=== PATIENT | male | born 1995 | race Caucasian/White ===

== ENCOUNTER 2019-08-16 15:13 | Emergency (ER) | payer MEDICARE, MEDICAID ==
--- NOTE | 2019-08-16 15:31 | ED ---
Psychiatric Complaint - HPI Summary HPI Summary: 24 year old male presents to the ED with a chief complaint of suicidal thoughts. Per EMS, patient has suicidal and homicidal thoughts, however patient himself denies these thoughts. He has been unable to sleep at all for 2 nights. Per patient, he has a history of self harm by cutting wrists. He has a history of recreational drug use and alcohol use but has not used in the last several days. He has recently been diagnosed with BPD and schizophrenia. Hx of anxiety and depression. Mom had BPD and schizophrenia. She earlier this year. - History Of Current Complaint Time Seen by Provider: 08/16/19 15:23 Hx Obtained From: Patient Onset/Duration: Lasting Days, Still Present Timing: Constant Severity Initially: Moderate Severity Currently: Moderate Character: Depressed Aggravating Factor(s): Nothing Alleviating Factor(s): Nothing Associated Signs And Symptoms: Positive: Sleep Disturbance - Hasn't slept for 2 nights Related History: Positive For: Prior Psychiatric Issues - depression, anxiety, schizophrenia, bipolar disorder Has Suicidal: Reports: Thoughts. Denies: With A Plan Has Homicidal: Reports: Thoughts. Denies: With A Plan - Allergies/Home Medications Home Medications: Home Medications Mirtazapine TAB* [Remeron TAB*] 15 mg PO DAILY 08/16/19 [History Confirmed 08/16] Sertraline* [Zoloft*] 100 mg PO BEDTIME 08/16/19 [History Confirmed 08/16/19] busPIRone TAB* [Buspar TAB *] 15 mg PO BID 08/16/19 [History Confirmed 08/16/19] hydrOXYzine HCL TAB* [Atarax 25 MG TAB*] 25 mg PO TID PRN 08/16/19 [History Confirmed 08/16/19] lamoTRIgine TAB(*) [LaMICtal TAB(*)] 50 mg PO BEDTIME 08/16/19 [History Confirmed 08/16/19] PMH/Surg Hx/FS Hx/Imm Hx Psychiatric History: Reports: Hx Anxiety, Hx Depression, Hx Schizophrenia, Hx Bipolar Disorder - Family History Known Family History: Positive: Other - Bipolar disorder, schizophrenia - Social History Alcohol Use: Weekly Hx Substance Use: Yes Review of Systems Negative: Fever Positive: Depressed All Other Systems Reviewed And Are Negative: Yes Physical Exam - Summary Physical Exam Summary: VITAL SIGNS: Reviewed. GENERAL: Patient is a well-developed and nourished male who is lying comfortable in the stretcher. Patient is not in any acute respiratory distress. HEAD AND FACE: No signs of trauma. No ecchymosis, hematomas or skull depressions. No sinus tenderness. EYES: PERRLA, EOMI x 2, No injected conjunctiva, no nystagmus. EARS: Hearing grossly intact. Ear canals and tympanic membranes are within normal limits. MOUTH: Oropharynx within normal limits. NECK: Supple, trachea is midline, no adenopathy, no JVD, no carotid bruit, no c- spine tenderness, neck with full ROM. CHEST: Symmetric, no tenderness at palpation. LUNGS: Clear to auscultation bilaterally. No wheezing or crackles. CVS: Regular rate and rhythm, S1 and S2 present, no murmurs or gallops appreciated. ABDOMEN: Soft, non-tender. No signs of distention. No rebound, no guarding, and no masses palpated. Bowel sounds are normal. EXTREMITIES: FROM in all major joints, no edema, no cyanosis or clubbing. NEURO: Alert and oriented x 3. No acute neurological deficits. Speech is normal and follows commands. SKIN: Dry and warm. PSYCH: Depressed, quiet, and denies any suicidal thoughts or plan. No homicidal thoughts or plan. No signs of psychosis or pressure speech. No tangential speech. Triage Information Reviewed: Yes Vital Signs Reviewed: Yes Procedures - Sedation Patient Received Moderate/Deep Sedation with Procedure: No Course/Dx - Course Assessment/Plan: 24 year old male presents to the ED with a chief complaint of suicidal thoughts. Per EMS, patient has suicidal and homicidal thoughts, however patient himself denies these thoughts. He has been unable to sleep at all for 2 nights. Per patient, he has a history of self harm by cutting wrists. He has a history of recreational drug use and alcohol use but has not used in the last several days. He has recently been diagnosed with BPD and schizophrenia. Hx of anxiety and depression. Mom had BPD and schizophrenia. She earlier this year. Blood work w/o a significant abnormality. He is medically cleared. He is awaiting a MHE. Patient is hemodynamically stable and A+O x 3. Dr. Eng ambulated the patient and recommends discharge home with follow-up with primary care physician. - Differential Dx/Clinical Impression Provider Diagnosis: Anxiety disorder, unspecified - Physician Notifications Discussed Care Of Patient With: Nona Eng - Psych Time Discussed With Above Provider: 18:20 Instructed by Provider To: Other - Dr. Eng performed a MHE. He recommends discharge home. Discharge ED - Sign-Out/Discharge Documenting (check all that apply): Patient Departure - discharge - Discharge Plan Condition: Stable Disposition: HOME Patient Education Materials: Anxiety (ED) Referrals: No Primary Care Phys,NOPCP [Primary Care Provider] - Additional Instructions: Per completion of a mental health evaluation, you are cleared for release and do not require inpatient psychiatric hospitalization at this time. Please go to nearest emergency room or call 911 if safety concerns arise or condition worsens. Important Phone Numbers: [facility] ph:[phone] [facility] ph:[phone] National Suicide Prevention Lifeline ph:[phone]- TALK (8232) [facility] ph:[phone] Alcoholics Anonymous ph: [facility] ph:[phone] [facility] ph:[phone] Recommendation: Return to [facility] where he will receive treatment for mental health and substance abuse. - Billing Disposition and Condition Condition: STABLE Disposition: Home - Attestation Statements Document Initiated by Scribe: Yes Documenting Scribe: Mil West Provider For Whom Scribe is Documenting (Include Credential): Akbar Salgado MD. Scribe Attestation: Mil Martin scribed for Akbar Salgado MD. on 08/17/19 at 1015. Scribe Documentation Reviewed: Yes Provider Attestation: The documentation as recorded by the Mil valdez accurately reflects the service I personally performed and the decisions made by Akbar rendon MD. Status of Scribe Document: Viewed
[2019-08-16 18:07] LABS: Urine Benzodiazepine Screen None Detected (None Detect); Urine Opiates Screen None Detected (None Detect)
[2019-08-16 18:58] VITALS: BP 138/71
== END 2019-08-16 18:40 | disposition home or self-care (01) ==
LOC: ED 15:13
DX: F41.9 Anxiety disorder, unspecified (principal); F20.9 Schizophrenia, unspecified; R45.851 Suicidal ideations; F32.9 Major depressive disorder, single episode, unspecified
CPT/HCPCS: 80307; 99285

== ENCOUNTER 2019-10-16 17:42 | Inpatient (IN) | payer MEDICARE, OTHER, MEDICAID ==
--- NOTE | 2019-10-16 17:55 | ED ---
Psychiatric Complaint - HPI Summary HPI Summary: This pt is a 24 y/o male presenting to [facility] via EMS from [facility] for SI and HI. Pt reports he has been experiencing twitching and a headache for the past 2 days and he believes it is a medications imbalance. Pt states he has SI thoughts and plan of killing himself with a knife. He also admits to HI thoughts. Denies any prior suicide attempts. Patient reports he can't cope with "it" anymore and is at the point where he needs high level or care. When asked what is "it" he states it is his anxiety and twitching. Patient's medications include antipsychotics, Zoloft, Lamictal. - History Of Current Complaint Time Seen by Provider: 10/16/19 17:43 Hx Obtained From: Patient, EMS Onset/Duration: Lasting Days - 2, Still Present Timing: Days Severity Currently: Mild Alleviating Factor(s): Nothing Associated Signs And Symptoms: Positive: Negative Related History: Positive For: Prior Psychiatric Issues Has Suicidal: Reports: Thoughts, With A Plan Has Homicidal: Reports: Thoughts. Denies: With A Plan - Allergies/Home Medications Allergies/Adverse Reactions: Allergies Allergy/AdvReac Type Severity Reaction Status Date / Time No Known Allergies Allergy Verified 10/17/19 17:40 Home Medications: Home Medications Folic Acid TAB* [Folvite TAB*] 1 mg PO DAILY 10/17/19 [History Confirmed ] Gabapentin CAP(*) [Neurontin 400 mg CAP(*)] 400 mg PO TID 10/17/19 [History Confirmed 10/17/19] Haloperidol CONC. PEGGY (NF) [Haloperidol CONC. SOLUTION (NF)] 1 mg PO BEDTIME 07/26 [History Confirmed 10/17/19] Mirtazapine TAB* [Remeron TAB*] 15 mg PO BEDTIME 10/17/19 [History Confirmed 07/26] Multivitamins/Minerals TAB* [Theragran/minerals TAB*] 1 tab PO DAILY 10/17/19 [ History Confirmed 10/17/19] Naloxone Nasal [place]* [Narcan Nasal [place]] 4 mg NASAL DAILY PRN 10/17/19 [ History Confirmed 10/17/19] Sertraline* [Zoloft*] 100 mg PO DAILY 10/17/19 [History Confirmed 10/17/19] Thiamine TAB* [Vitamin B-1 TAB*] 100 mg PO DAILY 10/17/19 [History Confirmed 07/26] cloNIDine TAB* [Catapres 0.1 MG TAB*] 0.1 mg PO BID 10/17/19 [History Confirmed 10/17/19] PMH/Surg Hx/FS Hx/Imm Hx Respiratory History: Denies: Hx Asthma Psychiatric History: Reports: Hx Anxiety, Hx Depression, Hx Schizophrenia, Hx Bipolar Disorder Denies: Hx Eating Disorder, Hx Post Traumatic Stress Disorder, Hx Suicide Attempt Infectious Disease History: No Infectious Disease History: Denies: Traveled Outside the [place] in Last 30 Days - Family History Known Family History: Positive: Other - Bipolar disorder, schizophrenia - Social History Alcohol Use: Weekly Alcohol Amount: 8-9 beers Hx Substance Use: Yes Substance Use Type: Reports: Cocaine, Marijuana, Other Substance Use Comment - Amount & Last Used: LSD Smoking Status (MU): Heavy Every Day Tobacco Smoker Review of Systems Negative: Fever Cardiovascular: Negative Respiratory: Negative Gastrointestinal: Negative Neurological/Mental Status: Other - POSITIVE: twitching Positive: Headache Psychological: Other - POSITIVE: SI and HI All Other Systems Reviewed And Are Negative: Yes Physical Exam - Summary Physical Exam Summary: VITAL SIGNS: Reviewed. GENERAL: Patient is a well-developed and nourished male. Patient is not in any acute respiratory distress. HEAD AND FACE: No signs of trauma. No ecchymosis, hematomas or skull depressions. No sinus tenderness. EYES: PERRLA, EOMI x 2, No injected conjunctiva, no nystagmus. EARS: Hearing grossly intact. Ear canals and tympanic membranes are within normal limits. MOUTH: Oropharynx within normal limits. NECK: Supple, trachea is midline, no adenopathy, no JVD, no carotid bruit, no c- spine tenderness, neck with full ROM. CHEST: Symmetric, no tenderness at palpation LUNGS: Clear to auscultation bilaterally. No wheezing or crackles. CVS: Regular rate and rhythm, S1 and S2 present, no murmurs or gallops appreciated. ABDOMEN: Soft, non-tender. No signs of distention. No rebound, no guarding, and no masses palpated. Bowel sounds are normal. EXTREMITIES: FROM in all major joints, no edema, no cyanosis or clubbing. NEURO: Alert and oriented x 3. No acute neurological deficits. Speech is normal and follows commands. SKIN: Dry and warm Triage Information Reviewed: Yes Vital Signs On Initial Exam: Initial Vitals Temp Pulse Resp BP Pulse Ox 97.7 F 61 14 109/67 97 10/16/19 17:45 10/16/19 17:45 10/16/19 17:45 10/16/19 17:45 10/16/19 17:45 Vital Signs Reviewed: Yes Procedures - Sedation Patient Received Moderate/Deep Sedation with Procedure: No Diagnostics - Vital Signs Vital Signs Temp Pulse Resp BP Pulse Ox 10/16/19 17:45 97.7 F 61 14 109/67 97 - Laboratory Result Diagrams: 10/16/19 17:59 10/16/19 17:59 Lab Statement: Any lab studies that have been ordered have been reviewed, and results considered in the medical decision making process. Re-Evaluation - Re-Evaluation First Eval Re-Evaluation Time: 18:27 Comment: Pt is medically cleared. Course/Dx - Course Assessment/Plan: This pt is a 24 y/o male presenting to [facility] via EMS from [facility] for SI and HI. Pt reports he has been experiencing twitching and a headache for the past 2 days and he believes it is a medications imbalance. Pt states he has SI thoughts and plan of killing himself with a knife. He also admits to HI thoughts. Denies any prior suicide attempts. Patient reports he can't cope with "it" anymore and is at the point where he needs high level or care. When asked what is "it" he states it is his anxiety and twitching. Patient's medications include antipsychotics, Zoloft, Lamictal. Blood work w/o a significant abnormality. He is medically cleared. He is awaiting a MHE. Patient is hemodynamically stable and A+O x 3. The patient is a sign-out from Dr. Akbar Salgado MD, to Dr. Stella Meneses MD, at change of shift at 2200 on 10/16/19, pending mental health evaluation and disposition. - Differential Dx/Clinical Impression Differential Diagnosis/HQI/PQRI: Positive: Depression, Suicidal Ideation Provider Diagnosis: Depression Discharge ED - Sign-Out/Discharge Documenting (check all that apply): Sign-Out Patient Signing out patient TO: Stella Meneses - Patient is a sign-out to Dr. Stella Meneses MD, at change of shift at 2200 on 10/16/19, pending MHE and disposition. - Discharge Plan Condition: Stable [place] [place]illing Disposition and Condition Condition: STABLE - Attestation Statements Document Initiated by Sahil: Yes Documenting Scribe: Taya Billy Provider For Whom Sahil is Documenting (Include Credential): Akbar Salgado MD Scribe Attestation: Ginger Martin Natalie George, scribed for Akbar Salgado MD on 10/18/19 at 0246. Scribe Documentation Reviewed: Yes Provider Attestation: The documentation as recorded by the martinibrichard, Taya Billy accurately reflects the service I personally performed and the decisions made by Akbar rendon MD Status of Scribe Document: Viewed
[2019-10-16 18:08] LABS: ABS Basophils 0.1 10^3/ul (0-0.2); ABS Eosinophils 0.1 10^3/ul (0-0.6); ABS Lymphocytes 2.4 10^3/ul (1.0-4.8); ABS Monocytes 0.5 10^3/ul (0-0.8); ABS Neutrophils 3.8 10^3/ul (1.5-7.7); Eosinophil % 1.8 %; Hematocrit 47 % (42-52); Hemoglobin 16.6 g/dL (14.0-18.0); Lymphocyte % 35.1 %; Mean Corpuscular HGB Conc 36 g/dL (31-36); Mean Corpuscular Hemoglobin 32 pg (27-31); Mean Corpuscular Volume 90 fL (80-94); Mean Platelet Volume 8.5 fL (7.4-10.4); Nucleated Red Blood Cells % 0.1; Platelet Count 208 10^3/uL (150-450); Red Blood Count 5.16 10^6 /uL (4.18-5.48); Red Cell Distribution Width 13 % (10-15); White Blood Count 6.8 10^3/uL (3.5-10.8)
[2019-10-16 18:36] LABS: Urine Appearance Cloudy; Urine Bilirubin Negative (Negative); Urine Blood Negative (Negative); Urine Color Yellow; Urine Glucose Negative (Negative); Urine Ketones Negative (Negative); Urine Nitrite Negative (Negative); Urine Protein 1+(30 mg/dL) (Negative); Urine Specific Gravity 1.026 (1.010-1.030); Urine Urobilinogen Negative (Negative)
[2019-10-16 18:39] LABS: Urine Bacteria Absent (Absent); Urine Red Blood Cell Absent (Absent); Urine White Blood Cell Absent (Absent)
[2019-10-16 18:48] LABS: ALT 20 U/L (7-52); AST 15 U/L (13-39); Albumin 4.7 g/dL (3.2-5.2); Albumin/Globulin Ratio 2.4 (1-3); Alkaline Phosphatase 69 U/L (34-104); Anion Gap 7 mmol/L (2-11); BUN/Creatinine Ratio 13.2 (8-20); Blood Urea Nitrogen 16 mg/dL (6-24); CO2 Carbon Dioxide 27 mmol/L (22-32); Calcium 9.5 mg/dL (8.6-10.3); Chloride 105 mmol/L (101-111); EGFR African American 89.1 (>60); EGFR Non-African American 73.7 (>60); Glucose 91 mg/dL (70-100); Potassium 4.3 mmol/L (3.5-5.0); Sodium 139 mmol/L (135-145); Total Protein 6.7 g/dL (6.4-8.9)
[2019-10-16 18:52] LABS: TSH (Thyroid Stimulating Horm) 2.27 mcIU/mL (0.34-5.60)
[2019-10-16 18:56] LABS: Alcohol < 10 mg/dL (<10); Salicylate < 2.50 mg/dL (<30)
[2019-10-16 19:18] LABS: Urine Benzodiazepine Screen None Detected (None Detect); Urine Opiates Screen None Detected (None Detect)
[2019-10-16 20:34] LABS: Acetaminophen < 15 mcg/mL
[2019-10-16] MEDS ORDERED: Haloperidol TAB* 2 MG PO ONE (22:18)
[2019-10-16] MEDS ORDERED: Benztropine TAB* 1 MG PO ONE (22:18)
[2019-10-16] MEDS ORDERED: hydrOXYzine HCL TAB* 25 MG PO ONE (22:19)
[2019-10-16] MEDS ORDERED: cloNIDine TAB* 0.1 MG PO ONE (22:19)
[2019-10-16] MEDS ORDERED: Mirtazapine TAB* 15 MG PO ONE (22:20)
--- NOTE | 2019-10-16 22:34 | ED ---
Progress - Progress Note Progress Note: Patient is received as a sign-out from Dr. Salgado at 2200 10/16/19 shift end pending MHE and disposition of this patient. 2215 - main line assembler requested night time medications for the patient. He was given Cogentin, Remeron, Atarax, Catapres,and Haldol. Patient is signed out to Dr. Kaplan at 0700 10/17/19 shift change pending MHE of this patient. Re-Evaluation - Re-Evaluation First Eval Re-Evaluation Time: 18:27 Comment: Pt is medically cleared. Course/Dx - Diagnoses Provider Diagnoses: Depression Discharge ED - Sign-Out/Discharge Documenting (check all that apply): Sign-Out Patient, Receiving Sign-Out Signing out patient TO: Xavi Kaplan Receiving patient FROM: Akbar Salgado - Discharge Plan Condition: Stable Referrals: No Primary Care Phys,NOPCP [Primary Care Provider] - - Billing Disposition and Condition Condition: STABLE - Attestation Statements Document Initiated by Scribe: Yes Documenting Scribe: JORDY OROZCO Provider For Whom Scribe is Documenting (Include Credential): JUSTIN MUÑOZ MD Scribe Attestation: IJORDY, scribed for JUSTIN MUÑOZ MD on 10/17/19 at 0704. Scribe Documentation Reviewed: Yes Provider Attestation: The documentation as recorded by the JORDY valdez accurately reflects the service I personally performed and the decisions made by me, JUSTIN MUÑOZ MD Status of Scribe Document: Viewed
--- NOTE | 2019-10-17 07:13 | ED ---
Progress - Progress Note Progress Note: Patient is a sign-out at 07:00 on 10/17/[address] Stella Meneses MD to Dr. Xavi Kaplan MD at shift change, pending mental health evaluation and disposition. At 12:55, costumer assistant reports that Dr. Adan Bird reviewed the patients case and patient will be [place] [facility] [place] a diagnosis of [place]. Patient will be admitted [place] [facility] with a diagnosis of [place]. Re-Evaluation - Re-Evaluation First Eval Re-Evaluation Time: 18:27 Comment: Pt is medically cleared. Course/Dx - Course Course Of Treatment: Patient was signed out to myself from Dr. Meneses pending mental health evaluation. Patient was evaluated by the mental health team and admitted to the hospital - Diagnoses Provider Diagnoses: Depression - Provider Notifications Discussed Care Of Patient With: Adan Bird - At 12:55, costumer assistant reports that Dr. Adan Bird reviewed the patients case and patient will be admitted to [facility] with a diagnosis of depression. Time Discussed With Above Provider: 12:55 Instructed by Provider To: Admit As Inpatient Discharge ED - Sign-Out/Discharge Documenting (check all that apply): Patient Departure - Admit, Receiving Sign- Out Receiving patient FROM: Stella Meneses - Patient is a sign-out at 07:[address] Stella Meneses MD to Dr. Xavi Kaplan MD at shift change, pending mental health evaluation and disposition. - Discharge Plan Condition: Stable Disposition[place] [place] [Outside] - Billing Disposition and Condition Condition: STABLE Disposition: [place] [facility] - Attestation Statements Document Initiated by Scribe: Yes Documenting Scribe: Randi Bustos Provider For Whom Sahil is Documenting (Include Credential): Xavi Kaplan MD Scribe Attestation: Randi Martin scribed for Xavi Kaplan MD on 10/17/19 at 1701. Scribe Documentation Reviewed: Yes Provider Attestation: The documentation as recorded by the Randi valdez accurately reflects the service I personally performed and the decisions made by me, Xavi Kaplan MD Status of Scribe Document: Viewed
[2019-10-17] MEDS ORDERED: Acetaminophen TAB* 325 MG PO PRN (16:32)
[2019-10-17] MEDS ORDERED: Al Hydrox/Mg Hydrox/Simet LIQ* 30 ML UDC PO PRN (16:32)
[2019-10-17] MEDS: busPIRone TAB* 15 MG PO SCH (20:07)
[2019-10-17] MEDS: hydrOXYzine HCL TAB* 25 MG PO PRN (20:09)
[2019-10-17] MEDS ORDERED: Mirtazapine TAB* 15 MG PO SCH (21:00)
[2019-10-17] MEDS ORDERED: lamoTRIgine TAB(*) 25 MG PO SCH (21:00)
[2019-10-18] MEDS: busPIRone TAB* 15 MG PO SCH (08:57)
[2019-10-18] MEDS ORDERED: Influenza VAC *QUAD* 2019-20* 0.5 ML SYRINGE IM ONE (09:00)
[2019-10-18] MEDS: hydrOXYzine HCL TAB* 25 MG PO PRN ×2 (12:41→20:29)
[2019-10-18] MEDS ORDERED: busPIRone TAB* 15 MG PO SCH (14:00)
[2019-10-18] MEDS: busPIRone TAB* 10 MG PO SCH ×2 (14:13→20:11)
--- NOTE | 2019-10-18 16:21 | HP ---
HISTORY AND PHYSICAL: DATE OF ADMISSION: 10/17/19 PROVIDER: Margarette Amador NP, in Psychiatry. SUPERVISING PHYSICIAN: Adan Bird MD * (DICTATED BY MARGARETTE AMADOR NP) JUSTIFICATION FOR ADMISSION: The patient is in need of 24-hour supervision and care secondary to suicidal ideation. CHIEF COMPLAINT: "Zoloft made my anxiety and depression worse and made me twitch." HISTORY OF PRESENT ILLNESS: The patient is a 24-year-old single white male with a history of bipolar disorder and serious substance use, who arrives, brought in by EMS from [facility] and is here on a voluntary status after determining that he feels suicidal in the context of twitching and being highly anxious. Isael is met in the hallway. He is twitching probably 3 times per minute, having facial and body twitches alike. He has been at [facility] for 3 months. Upon arrival to [facility], he had not slept for 4 days and was exhibiting what he terms manic symptoms, although he is unable to name what those symptoms are other than lack of sleep. He says that at that point he was diagnosed with bipolar disorder and started on Lamictal and Zoloft among other medications. Isael believes that Zoloft is responsible for the twitching, the high anxiety, and the increased depression, but he started Zoloft two months ago and didn't have these symptoms. When discussed, we believe that his increased anxiety, depression, and twitching may be the result of something else including more rapid cycling as well as the use of gabapentin. He is agreeable to changing medications, but also mentions that he believes a benzodiazepine would be helpful to him. When this option was declined to be ordered, he was gracious in accepting that declination but did bring it up again and asked with great hope that he be allowed to have a benzodiazepine if the twitching did not stop. He states that he has had bad anxiety that is so overwhelming that he feels suicidal. He had a plan to cut himself with a knife. He also discusses being very angry, feeling like he is going crazy, having racing thoughts that last from minutes to days. He says that these times he feels like he could beat someone up or possibly kill them. He is experiencing stressors of being at [facility]. He states that it is not bad and he is pretty happy there, but at the same time he is also experiencing symptoms that cause him to want to kill himself. The bipolar diagnosis does seem to make sense given the history that he has offered as well as the fact that his mom had bipolar disorder. He currently appears to be very uncomfortable with his twitching as well as simply uncomfortable and anxious in general. PAST PSYCHIATRIC HISTORY: He has no previous psychiatric admissions. He has been admitted to [facility] once before and is now at [facility] by mandate of the drug court. He is currently being seen at [facility] by a doctor named Yoselin, who he is concerned does not know enough about his treatment. He has experienced suicidal ideation in the past. He has not been violent. He does not currently have access to weapons because he is at an inpatient rehab facility. Previous psychiatric meds have included Zoloft and Haldol. He also has been taking mirtazapine, clonidine, and BuSpar. SUBSTANCE ABUSE HISTORY: He is in treatment for alcohol, cocaine, marijuana, and LSD use. He started using marijuana at age 16, alcohol and LSD at 18, and cocaine at age 21. PAST MEDICAL HISTORY: He stated there was nothing significant. FAMILY HISTORY: On mom's side, there is bipolar disorder as well as heroin addiction. Mom last March from an overdose of heroin that was laced with fentanyl. On dad's side, there is depression and he has a brother with autism. SOCIAL HISTORY: He went to high school in [place], [place]. He graduated, but did not continue on with schooling. He does not have children. He is not currently or partnered. His employment has been a string of jobs that he has not gotten very far at. 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 He has worked at [employer]. He has worked at [employer]. He has no history. He is not probation , but he is in drug court. REVIEW OF SYSTEMS: The patient reports feeling alert. He denies shortness of breath, heat or cold intolerance, chest pain or abdominal pain. He denies neurological symptoms with the exception of facial and body twitches, which appear to get worse when he is aware that we are talking about them and get less symptomatic when he is relaxed. He denies fevers or changes in weight. PHYSICAL EXAMINATION GENERAL: The patient is a well-developed and nourished male. He is not in any acute respiratory distress. VITAL SIGNS: On 10/18/19 at 0800, temperature is 97.8, pulse 54, respirations 18, O2 sat on room air 100%, blood pressure 154/75. It should be noted that his blood pressure was significantly lower on the day before. HEENT: Head and face: No signs of trauma. No ecchymosis, hematomas, or skull depressions. No sinus tenderness. Eyes: PERRLA. EOMI x2. No injected conjunctivae. No nystagmus. Ears: Hearing grossly intact. Ear canals and tympanic membranes are within normal limits. Mouth: Oropharynx within normal limits. NECK: Supple. Trachea is midline. No adenopathy. No JVD. No carotid bruits. No C-spine tenderness. Neck with full range of motion. LUNGS: Clear to auscultation bilaterally. No wheezing or crackles. CHEST: Symmetric. No tenderness to palpation. CVS: Regular rate and rhythm. S1 and S2 present. No murmurs or gallops appreciated. ABDOMEN: Soft, nontender. No signs of distention. No rebound. No guarding and no masses palpated. Bowel sounds are normal. EXTREMITIES: Full range of motion in all major joints. No edema. No cyanosis or clubbing. NEURO: Alert and oriented x4. Speech is normal and he follows commands. No acute neurological deficits. It should be noted that he does have tics. SKIN: Dry and warm. LABORATORY DATA: Most laboratory data are within normal limits. Exceptions include MCH high at 32, creatinine high at 1.21. Urine contains 1+ protein. Toxicology screen is clear of drugs of abuse. MENTAL STATUS EXAMINATION: Isael is a 5-feet 8-inch, 164-pound male, appearing his stated age of 24. He has very close-cropped starr hair and is wearing casual clothes. He is slightly hyperkinetic. His posture is relaxed. His eye contact is intermittent. He is cooperative. He is clearly anxious. His speech has a normal rate, tone, and volume. He is dysthymic. He has a full range of affect. His thoughts appear at normal rate and are sequential. His thought content is free of delusions. He is not homicidal or suicidal on the unit, but states he would be suicidal if he left the unit and went back to [facility] without help. He is not having auditory or visual hallucinations. His insight is fair. His judgment is fair. He is alert and oriented x4. DIAGNOSES: 1. Bipolar disorder, not otherwise specified. 2. Cocaine abuse disorder. 3. Marijuana abuse disorder. 4. Alcohol abuse disorder. 5. Psychadelic use disorder. IMPRESSION: Isael is a 24-year-old man who comes from [facility] inpatient to [facility], is diagnosed with bipolar disorder and asserts that he has suicidal ideation related to high anxiety and tics. PLAN: The patient is admitted to the adult behavioral health unit and placed on 15- minute checks for his own safety. He is encouraged to participate in supportive milieu, individual and group therapy. Estimated length of stay is 5 to 7 days. We may obtain an MMPI for diagnostic clarification. We will titrate medications including adding lithium and increasing lamotrigine as well as monitoring for mood and thought content. Discharge planning will include [facility] treatment providers. MARGARETTE AMADOR, TINA [id number]/CPS #: [id number] BROCK
[2019-10-18] MEDS: lamoTRIgine TAB(*) 100 MG PO SCH (20:11)
[2019-10-18] MEDS: risperiDONE TAB* 1 MG PO SCH (20:12)
[2019-10-18] MEDS: Lithium Carbonate TAB* 300 MG PO SCH (20:12)
[2019-10-19] MEDS: hydrOXYzine HCL TAB* 25 MG PO PRN ×3 (01:50→15:34)
[2019-10-19] MEDS: busPIRone TAB* 10 MG PO SCH ×3 (07:39→20:12)
[2019-10-19] MEDS: Lithium Carbonate TAB* 300 MG PO SCH ×2 (07:39→20:11)
[2019-10-19 08:53] LABS: HDL Cholesterol 46.3 mg/dL
[2019-10-19] MEDS: cloNIDine TAB* 0.1 MG PO SCH (10:32)
--- NOTE | 2019-10-19 13:26 | PN ---
Subjective - Subjective Date of Service: 10/19/19 Service Type: 34709 Hosp care 15 min low complexity Subjective: Orlando has gone to one or two groups since he has been here and has declined all others. It was made clear to him that he would be discharged unless he went to every group. He stated he felt poorly and that he felt better being in bed. Despite his appropriate concern for his well being, it is more appropriate for him to spend time in groups learning the coping skills he requires. Objective - General Observations Appearance: Neat Appears Stated Age: Yes Stature: WNL Posture: WNL Eye Contact: Avoidant Behavior/Activity: WNL - Interaction Observations Attitude Towards Examiner: Cooperative, Anxious, Defensive Stated Mood: Dysphoric, Anxious Affect: Full Speech Pattern/Tone: Clear, Appropriate, Normal Volume Thought Process: Coherent Thought Content: Depressive, Self-Deprecatory Thought Process: Lethality: Passive Wish Hallucination Type: None Delusion Type: None - Cognitive Function Orientation: A&O x 4 Level of Consciousness: Awake, Appropriate, Drowsy Cognition: WNL Estimated Intelligence: Normal Judgment Within Normal Limits: No Ability to Make Reasonable Decisions: Moderately Impaired - Medication Compliance Cooperative with Inpatient Medication Regimen: Yes - Group Participation Participates in Group Activities: Partial Assessment - Assessment Merits Inpatient Hospitalization: For Immediate Safety Inpatient DSM-V Dx: F31.32 Clinical Impression: Orlando is a 24-year-old white male diagnosed with bipolar 1 disorder current episode depressed who comes to the hospital from [facility] where he was having suicidal thoughts that were not manageable in that setting. Plan - Plan Treatment Plan: Name: ORLANDO GALINDO Birthdate: 1995 [id number] 10/19/2019 Started lithium, increased Lamictal, stopped mirtazapine and Zoloft. Started clonidine this morning. Twitches seem to be on the back burner. Encouraged going to groups or face discharge. Continued Medication Management: Different Medication Medications: Current Medications Acetaminophen (Tylenol Tab*) 650 mg PO Q4H PRN PRN Reason: for pain; or Temp >101 F Al Hydrox/Mg Hydrox/Simethicone (Maalox Plus*) 30 ml PO Q4H PRN PRN Reason: INDIGESTION Buspirone HCl (Buspar Tab*) 10 mg PO TID [facility] Last Admin: 10/19/19 07:39 Dose: 10 mg Clonidine HCl (Catapres Tab*) 0.1 mg PO DAILY [facility] Last Admin: 10/19/19 10:32 Dose: 0.1 mg Hydroxyzine HCl (Atarax Tab*) 50 mg PO Q6H PRN PRN Reason: ANXIETY Last Admin: 10/19/19 07:57 Dose: 50 mg Lamotrigine (Lamictal Tab(*)) 100 mg PO BEDTIME [facility] Last Admin: 10/18/19 20:11 Dose: 100 mg [place] Carbonate ([place] Carbonate Tab*) 300 mg PO BID [facility] Last Admin: 10/19/19 07:39 Dose: 300 mg Risperidone (Risperdal*) 0.5 mg PO BEDTIME [facility] Last Admin: 10/18/19 20:12 Dose: 0.5 mg - Discharge Plan Discharge Plan: Drug/Alcohol Rehab
[2019-10-19] MEDS: Nicotine* 2MG (FRUIT FLAVOR) GUM PO PRN (15:20)
[2019-10-19] MEDS: lamoTRIgine TAB(*) 100 MG PO SCH (20:11)
[2019-10-19] MEDS: risperiDONE TAB* 1 MG PO SCH (20:12)
[2019-10-20] MEDS: hydrOXYzine HCL TAB* 25 MG PO PRN (03:55)
[2019-10-20] MEDS: cloNIDine TAB* 0.1 MG PO SCH (08:54)
[2019-10-20] MEDS: busPIRone TAB* 10 MG PO SCH ×3 (08:54→21:12)
[2019-10-20] MEDS: Lithium Carbonate TAB* 300 MG PO SCH ×2 (08:55→21:10)
[2019-10-20] MEDS: Nicotine* 2MG (FRUIT FLAVOR) GUM PO PRN ×3 (08:56→18:52)
--- NOTE | 2019-10-20 12:29 | PN ---
BSU: Group Therapy Note - Service Type Service Type: 71961 Group Psychotherapy - Cognitive Behavioral Group Therapy ( CBT):Patient attended CBT programming this morning and presented with flat affect that did not vary with discussion. Although responsive to direct prompts to respond to questions, patient did not engage in spontaneous conversation.
--- NOTE | 2019-10-20 16:30 | PN ---
Subjective - Subjective Date of Service: 10/20/19 Service Type: 83501 Hosp care 15 min low complexity Subjective: Orlando has had a series of complaints regarding anxiety. We started propranolol yesterday which he states was helpful. He continues to hope that he will find a medication that will work for him and make things easier. Orlando advocated for me calling Melina Garcia who is an MEDICAL SUPERVISOR at [facility] inpatient unit. She is curious about what Orlando is getting out of being on the unit. She also agreed to fax ( with a release) a [facility] report about Orlando. The results indicated that the medications we were giving were not as helpful as the benzodiazepines he was requesting. Benzodiazepines are an inappropriate treatment for Orlando due to his extensive drug use history. Genesight has not proven itself useful in my practice in the past and so we will continue on with current therapies. Objective - General Observations Appearance: Neat Appears Stated Age: Yes Stature: WNL Posture: WNL Eye Contact: Average Behavior/Activity: WNL - Interaction Observations Attitude Towards Examiner: Cooperative, Anxious, Demanding Stated Mood: Anxious Affect: Full Speech Pattern/Tone: Clear, Appropriate, Normal Volume Thought Process: Coherent, Goal Directed Perception: WNL Thought Content: Preoccupation/Ruminations Hallucination Type: None Delusion Type: None - Cognitive Function Orientation: A&O x 4 Level of Consciousness: Awake, Alert, Appropriate Cognition: Impaired Attention/Concentration Estimated Intelligence: Normal Insight: Mostly Blames Others for Problems Judgment Within Normal Limits: No Ability to Make Reasonable Decisions: Moderately Impaired - Medication Compliance Cooperative with Inpatient Medication Regimen: Partial - Group Participation Participates in Group Activities: Yes Assessment - Assessment Merits Inpatient Hospitalization: For Immediate Safety Inpatient DSM-V Dx: F31.32 Clinical Impression: Orlando is a 24-year-old white male diagnosed with bipolar 1 disorder current episode depressed who comes to the hospital from [facility] where he was having suicidal thoughts that were not manageable in that setting. Plan - Plan Treatment Plan: Name: ORLANDO GALINDO Birthdate: 1995 [id number] 10/19/2019 Started lithium, increased Lamictal, stopped mirtazapine and Zoloft. Started clonidine this morning. Twitches seem to be on the back burner. Encouraged going to groups or face discharge. 10/20/2019 Discharge on Wednesday. Follow up on lithium level on Wednesday morning. Continued Medication Management: Different Medication Medications: Current Medications Acetaminophen (Tylenol Tab*) 650 mg PO Q4H PRN PRN Reason: for pain; or Temp >101 F Al Hydrox/Mg Hydrox/Simethicone (Maalox Plus*) 30 ml PO Q4H PRN PRN Reason: INDIGESTION Buspirone HCl (Buspar Tab*) 10 mg PO TID [facility] Last Admin: 10/20/19 14:15 Dose: 10 mg Hydroxyzine HCl (Atarax Tab*) 50 mg PO Q4H PRN PRN Reason: ANXIETY Last Admin: 10/20/19 03:55 Dose: 50 mg Lamotrigine (Lamictal Tab(*)) 100 mg PO BEDTIME [facility] Last Admin: 10/19/19 20:11 Dose: 100 mg [place] Carbonate ([place] Carbonate Tab*) 300 mg PO BID [facility] Last Admin: 10/20/19 08:55 Dose: 300 mg Nicotine Polacrilex (Nicotine Gum*) 2 mg PO Q2H PRN PRN Reason: CRAVING Last Admin: 10/20/19 11:03 Dose: 2 mg Propranolol HCl (Inderal 20 Mg Tab) 20 mg PO TID [facility] Last Admin: 10/20/19 14:15 Dose: 20 mg Risperidone (Risperdal*) 0.5 mg PO BEDTIME [facility] Last Admin: 10/19/19 20:12 Dose: 0.5 mg - Discharge Plan Discharge Plan: Drug/Alcohol Rehab
[2019-10-20] MEDS: lamoTRIgine TAB(*) 100 MG PO SCH (21:10)
[2019-10-20] MEDS: risperiDONE TAB* 1 MG PO SCH (21:11)
[2019-10-21] MEDS: busPIRone TAB* 10 MG PO SCH ×3 (08:13→20:53)
[2019-10-21] MEDS: Lithium Carbonate TAB* 300 MG PO SCH ×2 (08:13→20:54)
[2019-10-21] MEDS: hydrOXYzine HCL TAB* 25 MG PO PRN (14:00)
[2019-10-21] MEDS ORDERED: Mirtazapine TAB* 15 MG PO PRN (20:00)
--- NOTE | 2019-10-21 20:04 | PN ---
Subjective - Subjective Date of Service: 10/21/19 Service Type: 37476 Hosp care 15 min low complexity Subjective: Mood reported as "not so great lately ... pretty depressed and anxious." Sleeping poorly, requests resuming mirtazapine 15 mg HS. Reports having thoughts to harm himself but "not really a plan, just better off ." Reports that someone at [facility] submitted a mouth swab for a DNA test to tell him which meds might be best for him. Objective - General Observations Appearance: Neat, Well Groomed Appears Stated Age: Yes Stature: WNL Posture: WNL Eye Contact: Average Behavior/Activity: WNL - Interaction Observations Attitude Towards Examiner: Cooperative Stated Mood: Dysphoric Affect: Full Speech Pattern/Tone: Clear, Appropriate, Normal Volume Thought Process: Coherent, Goal Directed Perception: Depersonalization - "just kind of like feeling detached from myself , not present, off in my own world." Thought Process: Lethality: Passive Wish Hallucination Type: None, Denies Delusion Type: Denies - Cognitive Function Orientation: A&O x 4 Level of Consciousness: Awake, Alert, Appropriate Cognition: WNL Estimated Intelligence: Normal Insight: WNL Judgment Within Normal Limits: No Ability to Make Reasonable Decisions: Moderately Impaired - Medication Compliance Cooperative with Inpatient Medication Regimen: Yes - Group Participation Participates in Group Activities: Partial Assessment - Assessment Merits Inpatient Hospitalization: For Immediate Safety, For Stabilization, For Ongoing Evaluation, For Discharge Planning Inpatient DSM-V Dx: F31.32 Clinical Impression: Orlando is a 24-year-old white male diagnosed with bipolar 1 disorder current episode depressed who comes to the hospital from [facility] where he was having suicidal thoughts that were not manageable in that setting. ON 10.21.19, endorses never having had anxiety this bad before, and his thinking is not clear, has twitching and cannot sleep. Plan - Plan Treatment Plan: Name: ORLANDO GALINDO Birthdate: 1995 [id number] 10/19/2019 Started lithium, increased Lamictal, stopped mirtazapine and Zoloft. Started clonidine this morning. Twitches seem to be on the back burner. Encouraged going to groups or face discharge. 10/21/19 Agrees to change from risperidone 0.5 mg nightly to quetiapine 50 mg nightly and not to resume mirtazapine for now, as quetiapine is likely to adequately address insomnia. Continued Medication Management: Different Medication Medications: Current Medications Acetaminophen (Tylenol Tab*) 650 mg PO Q4H PRN PRN Reason: for pain; or Temp >101 F Al Hydrox/Mg Hydrox/Simethicone (Maalox Plus*) 30 ml PO Q4H PRN PRN Reason: INDIGESTION Buspirone HCl (Buspar Tab*) 10 mg PO TID [facility] Last Admin: 10/21/19 13:59 Dose: 10 mg Hydroxyzine HCl (Atarax Tab*) 50 mg PO Q4H PRN PRN Reason: ANXIETY Last Admin: 10/21/19 14:00 Dose: 50 mg Lamotrigine (Lamictal Tab(*)) 100 mg PO BEDTIME [facility] Last Admin: 10/20/19 21:10 Dose: 100 mg [place] Carbonate ([place] Carbonate Tab*) 300 mg PO BID [facility] Last Admin: 10/21/19 08:13 Dose: 300 mg Nicotine Polacrilex (Nicotine Gum*) 2 mg PO Q2H PRN PRN Reason: CRAVING Last Admin: 10/20/19 18:52 Dose: 2 mg Propranolol HCl (Inderal 20 Mg Tab) 20 mg PO TID [facility] Last Admin: 10/21/19 13:59 Dose: 20 mg Risperidone (Risperdal*) 0.5 mg PO BEDTIME [facility] Last Admin: 10/20/19 21:11 Dose: 0.5 mg - Discharge Plan Discharge Plan: Outpatient Follow Up Outpatient Program: [facility] in [place], [place]
[2019-10-21] MEDS: lamoTRIgine TAB(*) 100 MG PO SCH (20:54)
[2019-10-21] MEDS: QUEtiapine TAB* 25 MG PO SCH (20:54)
[2019-10-22] MEDS: busPIRone TAB* 10 MG PO SCH ×3 (09:16→20:46)
[2019-10-22] MEDS: Lithium Carbonate TAB* 300 MG PO SCH ×2 (09:16→20:46)
[2019-10-22] MEDS: Nicotine* 2MG (FRUIT FLAVOR) GUM PO PRN ×2 (10:02→11:42)
[2019-10-22] MEDS: hydrOXYzine HCL TAB* 25 MG PO PRN ×2 (11:43→15:30)
[2019-10-22] MEDS: lamoTRIgine TAB(*) 100 MG PO SCH (20:45)
[2019-10-22] MEDS: QUEtiapine TAB* 25 MG PO SCH (20:46)
[2019-10-23] MEDS: busPIRone TAB* 10 MG PO SCH (09:23)
[2019-10-23] MEDS: Lithium Carbonate TAB* 300 MG PO SCH (09:24)
[2019-10-23 10:38] VITALS: BP 126/65
[2019-10-23] MEDS ORDERED: Lithium Carbonate TAB* 300 MG PO SCH (21:00)
[2019-10-24] MEDS ORDERED: Lithium Carbonate TAB* 300 MG PO SCH (09:00)
--- NOTE | 2019-10-24 20:27 | DS ---
CC: [facility] Inpatient; Melina Jameson NP * DISCHARGE SUMMARY: DATE OF ADMISSION: 10/17/19 DATE OF DISCHARGE: 10/23/19 PROVIDER: Margarette Amador NP in Psychiatry. SUPERVISING PHYSICIAN: Dr. Adan Bird.* (DICTATED BY MARGARETTE AMADOR NP) DIAGNOSES: 1. Polysubstance use disorder. 2. Bipolar 1 disorder. 3. Adjustment disorder. CONDITION AT THE TIME OF DISCHARGE: Improved. Psychiatrically cleared and stable. Isael participated in some groups and was social with peers. He is agreeable to discharge. He has done well here psychiatrically. He tolerated the addition of medications well. He will be returning to [facility] in [place]. MENTAL STATUS EXAM: At the time of discharge, Isael is calm, cooperative, and makes good eye contact. He is alert and oriented x4. His grooming is good. His speech pace is normal. Thought processes are logical. He is not psychotic , not delusional. Denies AH, VH, SI, and HI. Insight and judgment are fair. He is willing to follow up and he is urged to see a therapist. DISCHARGE INSTRUCTIONS TO THE PATIENT: A. Medications: 1. BuSpar 10 mg 3 times a day. 2. Folic acid 1 mg tablet. 3. Hydroxyzine 25 mg t.i.d. p.r.n. anxiety. 4. Lamotrigine 100 mg at bedtime. 5. [place] carbonate 300 mg in the morning, 600 mg at bedtime. 6. Multivitamin 1 tablet daily. 7. Naloxone nasal spray available p.r.n. overdose. 8. Propranolol 20 mg t.i.d. 9. Quetiapine 50 mg at bedtime. 10. Thiamine 100 mg daily. B. Diet is regular. C. Activities as tolerated. He is a nonsmoker. There are no studies pending at the time of discharge. D. Followup care: He is returning to [facility] using a medicaid cab on 10/23/19 at 1 p.m. E. Disposition: He is sent back to [facility] Inpatient. F. Substance abuse followup: He is referred to [facility] for substance abuse treatment. HOSPITAL COURSE: Part A: Chief complaint: "Zoloft made my anxiety and depression worse and made me twitch." The patient is a 24-year-old single white male with a history of bipolar disorder and serious substance use, who arrives, brought in by EMS from [facility] and is here on a voluntary status after determining that he feels suicidal in the context of twitching and being highly anxious. Isael is met in the hallway. He is twitching probably 3 times per minute, having facial and body twitches alike. He has been at [facility] for 3 months. Upon arrival to [facility], he had not slept for 4 days and was exhibiting what he terms manic symptoms, although he is unable to name what those symptoms are other than lack of sleep. He says that at that point he was diagnosed with bipolar disorder and was started on Lamictal and Zoloft among other medications. Isael believes that Zoloft is responsible for the twitching, the high anxiety, and the increased depression, and he started Zoloft 2 months ago and did not have these symptoms. When discussed, we believed that his increased anxiety, depression, and twitching may be the result of something else including more rapid cycling as well as the use of gabapentin. He is agreeable to changing medications, but also mentions that he believes a benzodiazepine would be helpful to him. When this option was declined to be ordered, he was gracious in accepting that declination but did bring it up again and asked with great hope that he be allowed to have a benzodiazepine if the twitching did not stop. He states that he has had bad anxiety that is so overwhelming that he feels suicidal. He had a plan to cut himself with a knife. He also discussed as being very angry, feeling like he is going crazy, having racing thoughts that last from minutes to days. He says that there are times he feels like he could beat someone up or possibly kill them. He is experiencing stressors of being at [facility]. He states that it is not bad and he is pretty happy there, but at the same time, he is also experiencing symptoms that cause him to want to kill himself. The bipolar diagnosis does seem to make sense given the history that he has offered as well as the fact that his mother had bipolar disorder. He currently appears to be very uncomfortable with his twitching as well as simply uncomfortable and anxious in general. Part B: Psychiatric treatment was rendered. Isael was admitted to the adult behavioral health unit and placed on 15-minute checks for safety. He was safe on all checks. Isael did well on the unit but slept stating that he felt terrible and therefore went to groups only with the prompting that would be discharged immediately if he did not go to groups. He did interact well with peers. He did tolerate medications well. We increased Lamictal, stopped mirtazapine, stopped Zoloft, changed BuSpar from 15 mg twice a day to 10 mg 3 times a day, started lithium. He tolerated these changes well. He did continue to advocate for benzodiazepine which I continued to decline to give him. He is on Seroquel as a sleeping aide which also would help reduce his tics. It should be noted that his hemoglobin A1c is 5.0, triglycerides are 179 , cholesterol 231, LDL cholesterol 149, HDL cholesterol 46.3. Incidentally, his TSH is 2.27. We did not meet with his family. No consults were entered for him. Isael has improved. He is eager to leave. He wants to go back to [facility]. He did not find being at the hospital as helpful as he had hoped. On , I had discussed discharge with him as he was sleeping in his room stating he " felt like crap." On , he did go to all groups and on Wednesday, he did go to all groups. Over the weekend, however, he did not continue with that pattern and on Wednesday, he was eager to go back to [facility] stating he thought he would do better there. Isael is future oriented. He is no longer suicidal. His anxiety is still problematic but we did have a moderately lengthy discussion regarding how anxiety is not solvable with simply having pills. It is solvable by doing work internally and improving thoughts and trying to dissuade one self from believing the negative thoughts that are in one's head. Isael was not particularly receptive to that, but was sincere in his belief that he would do better back at [facility]. MARGARETTE AMADOR, TINA [id number]/CPS #: [id number]
== END 2019-10-23 14:25 | DRG 897 ==
LOC: ED 17:42 → BSU 10-17 16:32
PROVIDERS: ADMIT Psychiatry & Neurology Psychiatry; ATTEND Psychiatry & Neurology Psychiatry
PROC: GZHZZZZ Group Psychotherapy (ICD-10-PCS; principal; 2019-10-20)
DX: F14.10 Cocaine abuse, uncomplicated (principal); F31.32 Bipolar disorder, current episode depressed, moderate; R45.851 Suicidal ideations; F12.10 Cannabis abuse, uncomplicated; R45.850 Homicidal ideations; F31.9 Bipolar disorder, unspecified; F20.9 Schizophrenia, unspecified; F41.9 Anxiety disorder, unspecified; F17.200 Nicotine dependence, unspecified, uncomplicated; F10.10 Alcohol abuse, uncomplicated; Y90.9 Presence of alcohol in blood, level not specified; F43.20 Adjustment disorder, unspecified; F15.90 Other stimulant use, unspecified, uncomplicated; Z23 Encounter for immunization
CPT/HCPCS: 36415; 80053; 80061; 80178; 80307; 80320; 80329; 81003; 81015; 83036; 84443; 85025; 90686; 90853; 99222; 99231; 99238; 99284; A9270-GY; G0480